=== PATIENT | male | born 1950 | race Hispanic/Latino ===

== ENCOUNTER 2019-12-09 11:07 | Day surgery (SDC) | payer MEDICARE ==
[~2019-12-09 11:07] MED LIST: SODIUM CHLORIDE 0.9% 1000 ML 1,000 ML IV SCH; ceFAZolin/Water 2 GM/20 ML 2 GM/20 ML SYRINGE IV NR
--- NOTE | 2019-12-09 12:35 | Anesthesia Consultation ---
Anesthesia Consult and Med Hx Date of service: 12/09/19 - Airway Anesthetic Teeth Evaluation: Good, Caps ROM Head & Neck: Adequate Mental/Hyoid Distance: Adequate Mallampati Class: Class II Intubation Access Assessment: Probably Good - Pre-Operative Health Status ASA Pre-Surgery Classification: ASA2 Proposed Anesthetic Plan: General - Pulmonary Hx Smoking: Yes (STOPPED 1981) Hx Sleep Apnea: No (DEONTE PRE SCREEN HIGH RISK) - Cardiovascular System Hx Hypertension: Yes (X 25 YRS) Hx Coronary Artery Disease: No (high cholesterol) - Central Nervous System Hx Psychiatric Problems: Yes (anxiety) - Endocrine Hx Renal Disease: No (h/o bladder CA, prostate nodule) - Other Systems Hx Alcohol Use: Yes (HX ABUSE- DRY SINCE 1993) Hx Substance Use: Yes (HX ABUSE- CLEAN SINCE 1993) Hx Cancer: Yes (bladder CA)
--- NOTE | 2019-12-09 12:37 | Anesthesia Day of Surgery ---
Anesthesia Day of Surgery - Day of Surgery Patient Examined: Yes Patient H&P Reviewed: Yes Patient is NPO: Yes Beta Blockers: Yes (took Labetalol in the AM)
[2019-12-09] MEDS ORDERED: HYDROmorphone 1 MG/1 ML INJ ONE (12:43)
[2019-12-09] MEDS ORDERED: propofoL 200 MG/20 ML VIAL IV ONE (12:43)
[2019-12-09] MEDS ORDERED: LIDOCAINE MPF (2%) 20 MG/1 ML VIAL 5 ML ONE (12:44)
[2019-12-09] MEDS ORDERED: FAMOTIDINE 20 MG/2 ML INJ IV NR (13:00)
[2019-12-09] MEDS ORDERED: MIDAZOLAM 2 MG/2 ML INJ IV NR (13:00)
[2019-12-09] MEDS ORDERED: WATER FOR IRRIG STERILE 2000 ML IR ONE (13:33)
[2019-12-09] MEDS ORDERED: WATER FOR IRRIG STERILE 1,500 ML BOTTLE IR ONE (13:33)
[2019-12-09] MEDS ORDERED: MANNITOL/SORBITOL SOLUTION 3,000 ML IRRIG.SOLN IR ONE ×2 (13:49)
[2019-12-09] MEDS ORDERED: ONDANSETRON 4 MG/2 ML INJ ONE (14:07)
--- NOTE | 2019-12-09 14:10 | Short Stay Summary ---
Short Stay Documentation Date of service: 12/09/19 - History H&P: obtained from office - Allergies and Medications Current Medications: Allergies No Known Allergies Allergy (Verified 12/02/19 16:03) Home Medications Medication Instructions Recorded Confirmed Last Taken Type AtorvaSTATin [Lipitor] 40 mg PO QHS 12/02/19 12/09/19 12/08/19 09:00 History Butalb/Acetamin/Caff 50-325-40 0.5 tab PO TID 12/02/19 12/09/19 12/08/19 16:00 History [Fioricet 50-325-40] Folic Acid 1 mg PO DAILY 12/02/19 12/09/19 12/08/19 09:00 History LORazepam [Ativan] 1 mg PO TID PRN 12/02/19 12/02/19 Unknown History amLODIPine [Norvasc] 10 mg PO DAILY 12/02/19 12/09/19 12/09/19 07:30 History labetaloL [Labetalol 200mg TAB] 200 mg PO BID 12/02/19 12/09/19 12/09/19 07:30 History Active Medications Famotidine (Pepcid) 20 mg IV PREOP NR Stop: 12/09/19 23:00 Last Admin: 12/09/19 13:00 Dose: 20 mg Documented by: Fentanyl (Sublimaze) 50 mcg IV Q5MIN PRN PRN Reason: Pain , Severe (7-10) Stop: 12/09/19 23:00 Sodium Chloride (Nacl 0.9% 1000 Ml) 1,000 mls @ 100 mls/hr IV DIRECT DANIKA Stop: 12/09/19 23:59 Last Admin: 12/09/19 11:55 Dose: 100 mls/hr Documented by: Cefazolin Sodium (Ancef/Sterile Water 2 Gm/20 Ml) 2 gm in 20 mls @ 80 mls/hr IV PREOP NR; Protocol Stop: 12/09/19 23:00 Midazolam HCl (Versed) 2 mg IV PREOP NR Stop: 12/09/19 23:59 Last Admin: 12/09/19 13:05 Dose: 2 mg Documented by: - Brief post op/procedure progress note Date of procedure: 12/09/19 Pre-op diagnosis: bladder tumor x 2, elevated psa ---6 Post-op diagnosis: same Procedure: custo, TURBT-3CM, PUS 60CC----BX X 12 Anesthesia: GETA Surgeon: MONTY HARMON Estimated blood loss: minimal Pathology: list (prostate cores x 12 / bladder tumor) Specimen disposition: to lab Condition: stable - Hospital course Hospital course: floricet & bactrim on chart - Disposition Condition at discharge: Stable Disposition: DC-01 TO HOME OR SELFCARE Short Stay Discharge Plan Follow up with: MORENO OLIVER MD [Primary Care Provider] - 7 Days
[2019-12-09] MEDS: fentaNYL 100 MCG/2 ML INJ IV PRN ×4 (14:23→14:53)
[2019-12-09 15:04] VITALS: BP 154/72
--- NOTE | 2019-12-09 15:10 | XRay Report ---
Fluoroscopic view the abdomen. HISTORY: Elevated PSA. FINDINGS: Single fluoroscopic image of the abdomen was unremarkable. Fluoroscopy time: 2 seconds. One fluoroscopic image was obtained. Signer Name: Noe Servin MD Signed: 12/09/2019 3:05 PM Workstation Name: [id number]
--- NOTE | 2019-12-09 15:44 | Operative Report ---
PREOPERATIVE DIAGNOSIS: Bladder tumor x 2, elevated PSA of 6. PROCEDURE: Cystoscopy, transurethral resection of multiple bladder tumors (2 aggregate of 3 cm), a transrectal ultrasound with a 60 gram gland and prostate biopsy x 12. SURGEON: Stefan Nelson MD ANESTHESIA: General. ESTIMATED BLOOD LOSS: Minimal. FLUIDS: Crystalloid. COMPLICATIONS: No complications. INDICATIONS: This patient is a 69-year-old gentleman known to our service with a history of an elevated PSA biopsy negative in the past and recurrent bladder tumors. He has been followed with surveillance cystoscopy in the office, was found to have 2 tumors in the bladder. He had gotten out to surveillance of every 6 months. Also, has had persistent elevated PSA of 6 and presents now for intervention. DESCRIPTION OF PROCEDURE: The patient was taken to the operative suite, placed in a supine position, after adequate general anesthesia, placed in a dorsal lithotomy position, prepped and draped in a sterile fashion. Pancystourethroscopy was performed with a 22-Algerian Storz cystoscope. The patient has some mild trilobar obstruction. His bladder had some diffuse trabeculation. Both ureteral orifices in normal position. Two tumors were noted on the right side of the bladder, one just posterior to the right ureteral orifice. The second one is on the right posterior lateral wall. Using a 24-Algerian resectoscope and loop with the cutting and coag on 120 and 60, transurethral resection of both tumors were performed, taken down to the bladder wall and the base of normal tissue was cauterized as well. Chips were evacuated out, will be sent for routine pathologic evaluation. Next, with the use of a transrectal probe ____ 2 dimensions were used to obtain prostate volume of 60 mL. Twelve core biopsy was performed with 4 cores at the base, mid, and apex of the prostate. On ultrasound, no hypoechoic lesions could be appreciated. The patient tolerated the procedure well. Bladder was emptied. He was taken to recovery room, will go home on Bactrim and ____ at the patient's request. JOB# [id number] [facility]
--- NOTE | 2019-12-09 16:50 | Post Anesthesia Evaluation ---
- Post Anesthesia Evaluation Patient Participated: Yes Airway Patent: Yes Stable Respiratory Function: Yes Nausea/Vomiting: No Temp > 96.8F: Yes Pain Manageable: Yes Adequeate Hydration: Yes Anesthesia Complications: No
--- NOTE | 2019-12-09 18:50 | Ultrasound Report ---
Transrectal ultrasound. HISTORY: Bladder mass. FINDINGS: Transvaginal ultrasound was utilized for prostate biopsy which was performed by Dr. Nelson. Signer Name: Noe Servin MD Signed: 12/09/2019 6:46 PM Workstation Name: [id number]
== END 2019-12-09 16:05 | disposition home or self-care (01) ==
LOC: OR 11:07
PROVIDERS: ATTEND Urology
DX: N40.0 Benign prostatic hyperplasia without lower urinary tract symptoms (principal); C67.6 Malignant neoplasm of ureteric orifice; C67.2 Malignant neoplasm of lateral wall of bladder; G43.909 Migraine, unspecified, not intractable, without status migrainosus; E78.00 Pure hypercholesterolemia, unspecified; I10 Essential (primary) hypertension; F32.9 Major depressive disorder, single episode, unspecified; F41.9 Anxiety disorder, unspecified; Z72.89 Other problems related to lifestyle; Z98.890 Other specified postprocedural states; Z79.899 Other long term (current) drug therapy; Z87.891 Personal history of nicotine dependence
CPT/HCPCS: 52235; 55700; 74018; 76872; 88305; A4217; J0690; J1170; J2250; J2405; J2704; J3010; J7030; C1758

== ENCOUNTER 2021-02-06 06:06 | Observation (INO) | payer MEDICARE ==
[2021-01-31 13:39] LABS: Hematocrit 39.1 % (35.5-45.6); Hemoglobin 13.6 gm/dl (11.8-15.2); Mean Corpuscular HGB Conc 35 % (32-34); Mean Corpuscular Volume 92 fl (84-94); Platelet Count 261 K/mm3 (140-440); Red Blood Count 4.24 M/mm3 (3.65-5.03); Red Cell Distribution Width 13.8 % (13.2-15.2)
[2021-01-31 13:54] LABS: Alanine Aminotransferase 16 units/L (7-56); Albumin 4.5 g/dL (3.9-5); Blood Urea Nitrogen 10 mg/dL (9-20); Calcium 9.8 mg/dL (8.4-10.2); Hemolysis Index 2
[2021-01-31 14:01] LABS: BUN/Creatinine Ratio 14
--- NOTE | 2021-01-31 15:52 | Anesthesia Consultation ---
Anesthesia Consult and Med Hx Date of service: 02/06/21 - Airway Anesthetic Teeth Evaluation: Good ROM Head & Neck: Adequate Mental/Hyoid Distance: Adequate Mallampati Class: Class I Intubation Access Assessment: Good - Pulmonary Exam CTA: Yes - Cardiac Exam Cardiac Exam: RRR - Pre-Operative Health Status ASA Pre-Surgery Classification: ASA3 Proposed Anesthetic Plan: General Nerve Block: TAP - Pulmonary Hx Smoking: Yes (quit >30yrs ago) Hx Respiratory Symptoms: No Hx Sleep Apnea: No (DEONTE PRE SCREEN HIGH RISK) - Cardiovascular System Hx Hypertension: Yes Hx Heart Attack/AMI: No Hx Percutaneous Transluminal Coronary Angioplasty (PTCA): No Hx Cardia Arrhythmia: No Hx Valvular Heart Disease: Yes (MVP, asymptomatic) - Central Nervous System CVA: No Hx Psychiatric Problems: Yes (anxiety, depression) - Endocrine Hx Renal Disease: No Hx Liver Disease: No Hx Insulin Dependent Diabetes: No Hx Non-Insulin Dependent Diabetes: No Hx Thyroid Disease: No - Hematic Hx Anemia: No - Other Systems Hx Alcohol Use: Yes (hx EtOH abuse; sober since 1993) Hx Substance Use: Yes (hx substance abuse; sober since 1993) Hx Cancer: Yes (prostate ca, hx bladder ca) - Additional Comments Anesthesia Medical History Comments: No hx anesthetic complications.
[~2021-02-06 06:06] MED LIST changes: +ACETAMINOPHEN 500 MG TAB PO SCH; +CELECOXIB 200 MG CAP PO NR; +GABAPENTIN 300 MG CAP PO NR; +LACTATED RINGERS 1,000 ML IV SCH; -SODIUM CHLORIDE 0.9% 1000 ML 1,000 ML IV SCH; +ceFAZolin/STERILE WATER 2 GM/20 ML SYRINGE IV NR; +fentaNYL 100 MCG/2 ML INJ IV PRN
[2021-02-06] MEDS ORDERED: BACTERIOSTATIC SODIUM CHLORIDE 0.9% 30 ML VIAL INFILTRATI ONE (06:21)
[2021-02-06] MEDS ORDERED: fentaNYL 100 MCG/2 ML INJ ONE (07:10)
[2021-02-06] MEDS ORDERED: HYDROmorphone 1 MG/1 ML INJ ONE (07:10)
[2021-02-06] MEDS ORDERED: propofoL 200 MG/20 ML VIAL IV ONE (07:10)
[2021-02-06] MEDS ORDERED: ePHEDrine SULFATE 50 MG/1 ML INJ ONE ×3 (07:11→10:44)
[2021-02-06] MEDS ORDERED: HYDROmorphone 1 MG/1 ML INJ IV PRN (07:11)
[2021-02-06] MEDS ORDERED: ONDANSETRON 4 MG/2 ML INJ IV PRN ×2 (07:11→12:00)
--- NOTE | 2021-02-06 07:13 | Anesthesia Day of Surgery ---
Anesthesia Day of Surgery - Day of Surgery Patient Examined: Yes Patient H&P Reviewed: Yes Patient is NPO: Yes
[2021-02-06] MEDS: MIDAZOLAM 2 MG/2 ML INJ IV NR ×2 (07:15→12:05)
[2021-02-06] MEDS ORDERED: CALCIUM CHLORIDE 1,000 MG/10 ML SYRINGE IV ONE ×2 (07:21→09:22)
[2021-02-06] MEDS ORDERED: CITRIC ACID-SOD CITRATE 500 ML IV ONE (07:21)
[2021-02-06] MEDS ORDERED: BUPIVACAINE-EPINEPHRINE/PF 0.25%-1:200,000 (30 ML) VIAL INFILTRATI ONE ×2 (07:22→11:47)
[2021-02-06] MEDS ORDERED: THROMBIN (RECOMBINANT) 5,000 UNIT VIAL TP ONE ×2 (07:23→09:19)
[2021-02-06] MEDS ORDERED: SODIUM CHLORIDE 0.9% IRRIG SOLN 2000 ML IR ONE (09:17)
[2021-02-06] MEDS ORDERED: WATER FOR IRRIG STERILE 1,500 ML BOTTLE IR ONE (09:17)
[2021-02-06] MEDS ORDERED: CITRIC ACID-SOD CITRATE SOLN 500 ML IV SOLN IV ONE (09:18)
[2021-02-06] MEDS ORDERED: SUGAMMADEX SODIUM 200 MG/2 ML VIAL IV ONE (10:35)
[2021-02-06] MEDS ORDERED: SUCCINYLCHOLINE CHLORIDE 200 MG/10 ML INJ MDV ONE (11:00)
[2021-02-06] MEDS ORDERED: ROCURONIUM 50 MG/5 ML INJ IV ONE (11:00)
[2021-02-06] MEDS ORDERED: dexAMETHasone 20 MG/5 ML VIAL ONE (11:00)
[2021-02-06] MEDS ORDERED: LIDOCAINE MPF (2%) 20 MG/1 ML VIAL 5 ML ONE (11:00)
[2021-02-06] MEDS ORDERED: ONDANSETRON 4 MG/2 ML INJ ONE (11:00)
--- NOTE | 2021-02-06 11:07 | Short Stay Summary ---
Short Stay Documentation Date of service: 02/06/21 - History H&P: obtained from office - Allergies and Medications Current Medications: Allergies No Known Allergies Allergy (Verified 12/02/19 16:03) Home Medications Medication Instructions Recorded Confirmed Last Taken Type AtorvaSTATin [Lipitor] 40 mg PO QHS 12/02/19 01/27/21 02/06/21 05:30 History LORazepam [Ativan] 1 mg PO TID PRN 12/02/19 01/27/21 02/06/21 05:30 History amLODIPine [Norvasc] 10 mg PO DAILY 12/02/19 01/27/21 02/06/21 05:30 History labetaloL [Labetalol 200mg TAB] 300 mg PO BID 12/02/19 01/27/21 02/06/21 05:30 History Esgic Plus 1 tab PO PRN PRN 01/27/21 01/27/21 02/05/21 History Active Medications Acetaminophen (Acetaminophen 500 Mg Tab) 1,000 mg PO PREOP DANIKA Last Admin: 02/06/21 06:40 Dose: 1,000 mg Documented by: Celecoxib (Celecoxib 200 Mg Cap) 200 mg PO PREOP NR Stop: 02/07/21 23:59 Last Admin: 02/06/21 06:40 Dose: 200 mg Documented by: Fentanyl (Fentanyl 100 Mcg/2 Ml Inj) 100 mcg IV ONCE PRN PRN Reason: sedation for nerve block Stop: 02/07/21 23:59 Gabapentin (Gabapentin 300 Mg Cap) 300 mg PO PREOP NR Stop: 02/07/21 23:59 Last Admin: 02/06/21 06:40 Dose: 300 mg Documented by: Hydromorphone HCl (Hydromorphone 1 Mg/1 Ml Inj) 0.25 mg IV Q10MIN PRN PRN Reason: Pain, Moderate (4-6) Stop: 02/06/21 18:00 Hydromorphone HCl (Hydromorphone 1 Mg/1 Ml Inj) 0.5 mg IV Q10MIN PRN PRN Reason: Pain , Severe (7-10) Stop: 02/06/21 20:00 Lactated Ringer's (Lactated Ringers) 1,000 mls @ 100 mls/hr IV DIRECT DANIKA Stop: 02/06/21 23:59 Last Admin: 02/06/21 06:45 Dose: 100 mls/hr Documented by: Cefazolin Sodium (Ancef/Sterile Water 2 Gm/20 Ml) 2 gm in 20 mls @ 80 mls/hr IV PREOP NR Stop: 02/07/21 23:59 Midazolam HCl (Midazolam 2 Mg/2 Ml Inj) 2 mg IV PREOP NR Stop: 02/07/21 23:59 Last Admin: 02/06/21 07:15 Dose: 2 mg Documented by: Ondansetron HCl (Ondansetron 4 Mg/2 Ml Inj) 4 mg IV ONCE PRN PRN Reason: Nausea And Vomiting Stop: 02/06/21 18:00 - Brief post op/procedure progress note Date of procedure: 02/06/21 Pre-op diagnosis: prostate cancer Post-op diagnosis: same Procedure: robotic prostatectomy, bladder neck suspension Anesthesia: GETA Surgeon: MONTY HARMON Estimated blood loss: other (300cc) Pathology: none (prostate) Specimen disposition: to lab Condition: stable - Hospital course Hospital course: dilaudid, bactrim, post opinfo on chart PT WITH NO ISSUES IVET REMOVED HOME WITH STEVEN - Disposition Condition at discharge: Stable Short Stay Discharge Plan Follow up with: MORENO OLIVER MD [Primary Care Provider] - 7 Days
--- NOTE | 2021-02-06 11:41 | Consultation ---
History of Present Illness - Reason for Consult Consult date: 02/06/21 Medical management Requesting physician: MONTY NELSON - History of Present Illness 70 YO Male with CAP, HTN. consult placed for medical management. Consult placed by Dr. Nelson. Patient seen and evaluated in his room. No reported nursing events. Patient denies pain. Patient denies fever, chills, chest pain, palpitation, reductive cough, skin rash, recent ill contacts, or known exposure to COVID-19. No reported nursing events. Past History Past Medical History: cancer, hypertension Past Surgical History: Other ( prostatectomy) Social history: . denies: smoking, alcohol abuse Family history: no significant family history, other (Reviewed) Medications and Allergies Allergies Allergy/AdvReac Type Severity Reaction Status Date / Time No Known Allergies Allergy Verified 12/02/19 16:03 Home Medications Medication Instructions Recorded Confirmed Last Taken Type AtorvaSTATin [Lipitor] 40 mg PO QHS 12/02/19 01/27/21 02/06/21 05:30 History LORazepam [Ativan] 1 mg PO TID PRN 12/02/19 01/27/21 02/06/21 05:30 History amLODIPine [Norvasc] 10 mg PO DAILY 12/02/19 01/27/21 02/06/21 05:30 History labetaloL [Labetalol 200mg TAB] 300 mg PO BID 12/02/19 01/27/21 02/06/21 05:30 History Esgic Plus 1 tab PO PRN PRN 01/27/21 01/27/21 02/05/21 History Active Meds: Active Medications Acetaminophen (Acetaminophen 500 Mg Tab) 1,000 mg PO PREOP DANIKA Last Admin: 02/06/21 06:40 Dose: 1,000 mg Documented by: Amlodipine Besylate (Amlodipine 10 Mg Tab) 10 mg PO DAILY [facility] Atorvastatin Calcium (Atorvastatin 40 Mg Tab) 40 mg PO QHS DANIKA Celecoxib (Celecoxib 200 Mg Cap) 200 mg PO PREOP NR Stop: 02/07/21 23:59 Last Admin: 02/06/21 06:40 Dose: 200 mg Documented by: Fentanyl (Fentanyl 100 Mcg/2 Ml Inj) 100 mcg IV ONCE PRN PRN Reason: sedation for nerve block Stop: 02/07/21 23:59 Gabapentin (Gabapentin 300 Mg Cap) 300 mg PO PREOP NR Stop: 02/07/21 23:59 Last Admin: 02/06/21 06:40 Dose: 300 mg Documented by: Hydromorphone HCl (Hydromorphone 1 Mg/1 Ml Inj) 0.25 mg IV Q10MIN PRN PRN Reason: Pain, Moderate (4-6) Stop: 02/06/21 18:00 Hydromorphone HCl (Hydromorphone 1 Mg/1 Ml Inj) 0.5 mg IV Q10MIN PRN PRN Reason: Pain , Severe (7-10) Stop: 02/06/21 20:00 Hydromorphone HCl (Hydromorphone 2 Mg/1 Ml Inj) 2 mg IV Q3H PRN PRN Reason: Pain , Severe (7-10) Hydromorphone HCl (Hydromorphone 2 Mg Tab) 2 mg PO Q4H PRN PRN Reason: Pain , Severe (7-10) Lactated Ringer's (Lactated Ringers) 1,000 mls @ 100 mls/hr IV DIRECT DANIKA Stop: 02/06/21 23:59 Last Admin: 02/06/21 06:45 Dose: 100 mls/hr Documented by: Cefazolin Sodium (Ancef/Sterile Water 2 Gm/20 Ml) 2 gm in 20 mls @ 80 mls/hr IV PREOP NR Stop: 02/07/21 23:59 Sodium Chloride (Nacl 0.9% 1000 Ml) 1,000 mls @ 100 mls/hr IV DIRECT DANIKA Cefazolin Sodium (Ancef/Ns 1 Gm/50 Ml) 1 gm in 50 mls @ 100 mls/hr IV Q8H DANIKA; Protocol Stop: 02/07/21 01:29 Labetalol HCl (Labetalol 200 Mg Tab) 300 mg PO BID DANIKA Midazolam HCl (Midazolam 2 Mg/2 Ml Inj) 2 mg IV PREOP NR Stop: 02/07/21 23:59 Last Admin: 02/06/21 07:15 Dose: 2 mg Documented by: Naloxone HCl (Naloxone 0.4 Mg/1 Ml Inj) 0.1 mg IV Q2MIN PRN PRN Reason: Res Rate </= 8 or 02 SAT < 92% Ondansetron HCl (Ondansetron 4 Mg/2 Ml Inj) 4 mg IV ONCE PRN PRN Reason: Nausea And Vomiting Stop: 02/06/21 18:00 Ondansetron HCl (Ondansetron 4 Mg/2 Ml Inj) 4 mg IV Q8H PRN PRN Reason: Nausea And Vomiting Zolpidem Tartrate (Zolpidem 5 Mg Tab) 5 mg PO QHS PRN PRN Reason: Sleep Review of Systems Constitutional: no weight gain, no fever, no chills, no sweats Ears, nose, mouth and throat: no ear pain, no tinnitis, no nose pain, no nasal congestion, no sinus pressure Cardiovascular: no chest pain, no orthopnea, no palpitations Respiratory: no cough, no cough with sputum, no hemoptysis Gastrointestinal: no abdominal pain, no nausea, no vomiting, no diarrhea, no constipation, no change in bowel habits Genitourinary Male: no hematuria, no flank pain, no discharge, no urinary frequency, no urinary hesitancy, no nocturia Rectal: no pain, no incontinence, no bleeding Musculoskeletal: no neck stiffness, no neck pain, no arm numbness/tingling, no shooting leg pain, no leg numbness/tingling Integumentary: no rash, no pruritis, no redness, no sores Neurological: no head injury, no paralysis, no parathesias, no tingling, no syncope Psychiatric: no anxiety, no insomnia, no hypersomnia, no change in appetite, no disorientation Endocrine: no excessive thirst, no polyuria, no excessive sweating, no flushing Hematologic/Lymphatic: no easy bruising, no easy bleeding Exam - Constitutional Vitals: Temp Pulse Resp BP Pulse Ox 98.2 F 63 20 149/87 98 01/31/21 11:50 01/31/21 11:50 01/31/21 11:50 01/31/21 11:50 01/31/21 11:50 General appearance: Present: no acute distress, well-nourished - EENT Eyes: Present: PERRL ENT: hearing intact, clear oral mucosa - Neck Neck: Present: supple, normal ROM - Respiratory Respiratory effort: normal Respiratory: bilateral: CTA - Cardiovascular Heart Sounds: Present: S1 & S2. Absent: rub, click - Extremities Extremities: pulses symmetrical, No edema Peripheral Pulses: within normal limits - Abdominal General gastrointestinal: Present: soft, non-tender, non-distended, normal bowel sounds Male genitourinary: Present: normal - Integumentary Integumentary: Present: clear, warm, dry - Musculoskeletal Musculoskeletal: gait normal, strength equal bilaterally - Psychiatric Psychiatric: appropriate mood/affect, intact judgment & insight - Neurologic Neurologic: CNII-XII intact, moves all extremities Results - Labs CBC & Chem 7: 01/31/21 00:01 01/31/21 00:01 Assessment and Plan - Patient Problems (1) Hypertension Current Visit: Yes Status: Acute Qualifiers: Hypertension type: essential hypertension Qualified Code(s): I10 - Essential (primary) hypertension Plan to address problem: Continue medical management, monitor blood pressure every shift, supportive care. (2) Prostate cancer Current Visit: Yes Status: Acute Plan to address problem: Pain control, patient is status post prostatectomy, further care as per primary team.
[2021-02-06] MEDS ORDERED: dexAMETHasone 4 MG/ML VIAL ONE (11:47)
[2021-02-06] MEDS ORDERED: NALOXONE 0.4 MG/1 ML INJ IV PRN (12:00)
[2021-02-06] MEDS ORDERED: HYDROmorphone 2 MG TAB PO PRN (12:00)
[2021-02-06] MEDS ORDERED: SODIUM CHLORIDE 0.9% 1000 ML 1,000 ML IV SCH (12:00)
[2021-02-06] MEDS: HYDROmorphone 1 MG/1 ML INJ IV PRN ×6 (12:05→16:40)
--- NOTE | 2021-02-06 14:27 | Operative Report ---
DATE OF SURGERY: 02/06/2021 PREOPERATIVE DIAGNOSIS: Prostate cancer. POSTOPERATIVE DIAGNOSIS: Prostate cancer. PROCEDURES: Robotic-assisted laparoscopic prostatectomy, bladder neck suspension, stem cell implant. SURGEON: Stefan Nelson MD GENERAL INTERNIST: Rita Vaughn. ANESTHESIA: General. ESTIMATED BLOOD LOSS: Minimal. FLUIDS: Crystalloid. COMPLICATIONS: No complications. INDICATIONS FOR PROCEDURE: This patient is a 70-year-old gentleman known to my service for prostate cancer diagnosed 11/2019, Jessica 7, elected for active surveillance initially. PSA 4.6, however, recent MRI suggested an aggressive lesion. He also has a history of superficial bladder cancer. Recent cystoscopy was negative. Risks, benefits and complications were explained. The patient agreed to proceed with surgical intervention. DESCRIPTION OF PROCEDURE: The patient was taken to the operative suite, placed in a supine position. After adequate general anesthesia, he was placed in a modified dorsal lithotomy position, prepped and draped in a sterile fashion. Supraumbilical incision was made with the Bovie. Towel clips were placed. Veress needle was used for insufflation. Drop test initially was 0 mL of water. Insufflation to 15 cm of water was performed. A 15 cm cephalad to the pubic symphysis was marked, 9 cm lateral, additional 9 cm lateral, and after the 0-degree lens was placed in the supraumbilical incision, the robotic ports were also placed under direct vision, no signs of injury or metastasis could be appreciated. A 12 mm helper port on the right side as well as a 5 mm helper port was on the right side. The robotic cart was docked between the legs. The patient was placed in exaggerated dorsal lithotomy position. Second arch identified the bladder. The arch was scored exposing the seminal vesicles and vas deferens. They were dissected out as well as dissection was taken to the apex of the prostate. Vas deferens was transected. Attention was then taken to the anterior abdominal wall. Lateral to the anterior abdominal ligament was scored, bladder flap bilaterally and a bladder flap was created. Endopelvic fascia was opened bilaterally. Dorsal vein complex was identified and controlled with a 60 mm vascular stapler. Attention was then taken at the bladder neck, which was scored and opened anteriorly exposing the Hayes catheter, was deflated and pulled anteriorly for traction. Posterior bladder neck was transected. Ureteral orifices could be appreciated, were uninjured. Seminal vesicles and vas deferens were pulled anteriorly. Lateral pedicles were controlled with 60 mm vascular stapler bilaterally. Dorsal vein complex was then transected along with the anterior urethra distal to the prostate. Hayes could be appreciated. Posterior urethra was transected and the prostate was dissected free, placed in the EndoCatch bag. Copious irrigation was performed. Adequate hemostasis achieved. A bladder neck reconstruction was performed with 2-0 Vicryl in interrupted fashion at the 7 o'clock and 5 o'clock positions. Double-armed V-Loc was placed at the 6 o'clock position of the bladder neck in the corresponding aspect of the urethra. The needle was avulsed and taken out and therefore, the reconstruction was taken down and a new V-Loc stitch was placed without difficulty. To ensure good placement of the Hayes, 0.035 Glidewire was placed, 16-Malay mashpee tip catheter was advanced over the wire without difficulty. Bladder neck anastomosis was cinched down. Hayes catheter balloon had 15 mL sterile water irrigation. No clots, no leak. Bladder neck suspension was performed, placed in the V-Loc stitch in the pubic rami bilaterally. Stem cell graft was placed along the neurovascular bundle bilaterally. Platelet rich plasma, platelet poor plasma was injected around the anastomosis as well as a platelet membrane. Bronson-Heath drain was brought out through the left-sided incision and secured with a 2-0 silk in interrupted fashion. The robotic cart was undocked. Supraumbilical incision was extended to allow removal of the prostate. It was then closed with a #1 Vicryl in a [id number] fashion. The rest of the incisions were closed with a 2-0 Monocryl in an interrupted fashion. Hayes catheter was folded over. Side port of the Hayes catheter was folded over and tied with 0 silk to prevent removal. The patient tolerated the procedure well, was extubated and taken to recovery room in stable condition. He will be observed overnight and go home on Dilaudid and Bactrim. Rita Vaughn was present throughout the procedure at the bedside to assist. TID: [id number] RECEIPT: [id number] C/SONIA/RUBIOB
--- NOTE | 2021-02-06 16:16 | Post Anesthesia Evaluation ---
- Post Anesthesia Evaluation Patient Participated: Yes Airway Patent: Yes Stable Respiratory Function: Yes Nausea/Vomiting: No Temp > 96.8F: Yes Pain Manageable: Yes Adequeate Hydration: Yes Anesthesia Complications: No Block Receding Appropriately: Yes Patient on Ventilator: No
[2021-02-06] MEDS ORDERED: amLODIPine 10 MG TAB PO SCH (18:00)
[2021-02-06] MEDS: ceFAZolin/NS 1 GM/50 ML 1 GM/50 ML BAG IV SCH (19:27)
[2021-02-06] MEDS ORDERED: LORazepam 1 MG TAB PO PRN (19:40)
[2021-02-06] MEDS: HYDROmorphone 2 MG/1 ML INJ IV PRN (20:47)
[2021-02-06] MEDS ORDERED: ZOLPIDEM 5 MG TAB PO PRN (22:00)
[2021-02-07] MEDS: ceFAZolin/NS 1 GM/50 ML 1 GM/50 ML BAG IV SCH (00:35)
[2021-02-07] MEDS: HYDROmorphone 2 MG/1 ML INJ IV PRN ×2 (00:43→05:30)
[2021-02-07 05:24] LABS: Basophils % (Auto) 0.1 % (0.0-1.8); Hematocrit 36.3 % (35.5-45.6); Hemoglobin 12.5 gm/dl (11.8-15.2); Lymphocytes # (Auto) 0.7 K/mm3 (1.2-5.4); Lymphocytes % (Auto) 5.7 % (13.4-35.0); Mean Corpuscular HGB Conc 35 % (32-34); Mean Corpuscular Volume 92 fl (84-94); Monocytes % (Auto) 8.2 % (0.0-7.3); Platelet Count 243 K/mm3 (140-440); Red Blood Count 3.96 M/mm3 (3.65-5.03); Red Cell Distribution Width 13.4 % (13.2-15.2)
[2021-02-07 05:37] LABS: Blood Urea Nitrogen 12 mg/dL (9-20); Calcium 8.3 mg/dL (8.4-10.2); Hemolysis Index 4
[2021-02-07 05:38] LABS: BUN/Creatinine Ratio 17
--- NOTE | 2021-02-07 08:50 | Progress Note ---
Assessment and Plan Assessment and plan: (1) Hypertension Current Visit: Yes Status: Acute Qualifiers: Hypertension type: essential hypertension Qualified Code(s): I10 - Essential (primary) hypertension Plan to address problem: Continue medical management, monitor blood pressure every shift, supportive care. (2) Prostate cancer Current Visit: Yes Status: Acute Plan to address problem: Pain control, patient is status post prostatectomy, further care as per primary team. 02/07/2021; blood pressures controlled. Disposition is per primary team. History Interval history: Patient was seen and evaluated this morning Patient was complaining and getting better after he gave pain medicine. Hospitalist Physical - Physical exam Narrative exam: Not in cardiopulmonary distress. The patient appeared well nourished and normally developed. Vital signs as documented. Head exam is unremarkable. No scleral icterus . Neck is without jugular venous distension, thyromegaly, or carotid bruits. Lungs are clear to auscultation. Cardiac exam reveals regular rate and Rhythm. Abdominal exam reveals normal bowel sounds, nontender, no organomegaly. Extremities are nonedematous and both femoral and pedal pulses are normal. GROUND OPERATIONS SUPERVISOR: Alert and oriented 3. No focal weakness. - Constitutional Vitals: Temp Pulse Resp BP Pulse Ox 98.2 F 84 18 135/89 95 02/07/21 04:19 02/07/21 04:19 02/07/21 04:19 02/07/21 04:19 02/07/21 04:19 General appearance: Present: no acute distress, well-nourished Results - Labs CBC & Chem 7: 02/07/21 04:25 02/07/21 04:25 Labs: Laboratory Last Values WBC 11.7 K/mm3 (4.5-11.0) H 02/07/21 04:25 RBC 3.96 M/mm3 (3.65-5.03) 02/07/21 04:25 Hgb 12.5 gm/dl (11.8-15.2) 02/07/21 04:25 Hct 36.3 % (35.5-45.6) 02/07/21 04:25 MCV 92 fl (84-94) 02/07/21 04:25 MCH 32 pg (28-32) 02/07/21 04:25 MCHC 35 % (32-34) H 02/07/21 04:25 RDW 13.4 % (13.2-15.2) 02/07/21 04:25 Plt Count 243 K/mm3 (140-440) 02/07/21 04:25 Lymph % (Auto) 5.7 % (13.4-35.0) L 02/07/21 04:25 [place] % (Auto) 8.2 % (0.0-7.3) H 02/07/21 04:25 Eos % (Auto) 0.0 % (0.0-4.3) 02/07/21 04:25 Baso % (Auto) 0.1 % (0.0-1.8) 02/07/21 04:25 Lymph # (Auto) 0.7 K/mm3 (1.2-5.4) L 02/07/21 04:25 [place] # (Auto) 1.0 K/mm3 (0.0-0.8) H 02/07/21 04:25 Eos # (Auto) 0.0 K/mm3 (0.0-0.4) 02/07/21 04:25 Baso # (Auto) 0.0 K/mm3 (0.0-0.1) 02/07/21 04:25 Seg Neutrophils % 86.0 % (40.0-70.0) H 02/07/21 04:25 Seg Neutrophils # 10.0 K/mm3 (1.8-7.7) H 02/07/21 04:25 Sodium 135 mmol/L (137-145) L 02/07/21 04:25 Potassium 3.9 mmol/L (3.6-5.0) 02/07/21 04:25 Chloride 100.6 mmol/L (98-107) 02/07/21 04:25 Carbon Dioxide 23 mmol/L (22-30) 02/07/21 04:25 Anion Gap 15 mmol/L 02/07/21 04:25 BUN 12 mg/dL (9-20) 02/07/21 04:25 Creatinine 0.7 mg/dL (0.8-1.3) L 02/07/21 04:25 Estimated GFR > 60 ml/min 02/07/21 04:25 BUN/Creatinine Ratio 17 % 02/07/21 04:25 Glucose 141 mg/dL (75-100) H 02/07/21 04:25 Calcium 8.3 mg/dL (8.4-10.2) L 02/07/21 04:25 Total Bilirubin 0.20 mg/dL (0.1-1.2) 01/31/21 00:01 AST 17 units/L (5-40) 01/31/21 00:01 ALT 16 units/L (7-56) 01/31/21 00:01 Alkaline Phosphatase 107 units/L (35-129) 01/31/21 00:01 Total Protein 6.8 g/dL (6.3-8.2) 01/31/21 00:01 Albumin 4.5 g/dL (3.9-5) 01/31/21 00:01 Albumin/Globulin Ratio 2.0 % 01/31/21 00:01 Coronavirus (PCR) Negative (Negative) 01/31/21 11:40 Blood Type A POSITIVE 02/06/21 06:45 Antibody Screen Negative 02/06/21 06:45 Hayes/IV: Voiding Method Indwelling Catheter Active Medications - Current Medications Current Medications: Generic Name Dose Route Start Last Admin Trade Name Freq PRN Reason Stop Dose Admin Acetaminophen 1,000 mg 02/06/21 06:00 02/06/21 06:40 Acetaminophen 500 Mg Tab PO 1,000 mg PREOP DANIKA Administration Amlodipine Besylate 10 mg 02/07/21 10:00 Amlodipine 10 Mg Tab PO DAILY DANIKA Atorvastatin Calcium 40 mg 02/06/21 22:00 02/06/21 22:02 Atorvastatin 40 Mg Tab PO 40 mg QHS DANIKA Administration Celecoxib 200 mg 02/06/21 06:00 02/06/21 06:40 Celecoxib 200 Mg Cap PO 02/07/21 23:59 200 mg PREOP NR Administration Fentanyl 100 mcg 02/06/21 06:00 Fentanyl 100 Mcg/2 Ml Inj IV 02/07/21 23:59 ONCE PRN sedation for nerve block Gabapentin 300 mg 02/06/21 06:00 02/06/21 06:40 Gabapentin 300 Mg Cap PO 02/07/21 23:59 300 mg PREOP NR Administration Hydromorphone HCl 2 mg 02/06/21 12:00 02/07/21 05:30 Hydromorphone 2 Mg/1 Ml Inj IV 2 mg Q3H PRN Administration Pain , Severe (7-10) Hydromorphone HCl 2 mg 02/06/21 12:00 Hydromorphone 2 Mg Tab PO Q4H PRN Pain , Severe (7-10) Cefazolin Sodium 2 gm in 20 mls @ 80 mls/hr 02/06/21 06:00 Ancef/Sterile Water 2 Gm/20 Ml IV 02/07/21 23:59 PREOP NR Sodium Chloride 1,000 mls @ 100 mls/hr 02/06/21 12:00 02/07/21 00:38 Nacl 0.9% 1000 Ml IV 100 mls/hr DIRECT DANIKA Administration Labetalol HCl 300 mg 02/06/21 18:00 02/06/21 22:01 Labetalol 100 Mg Tab PO 300 mg BID DANIKA Administration Lorazepam 1 mg 02/06/21 19:40 02/06/21 22:02 Lorazepam 1 Mg Tab PO 1 mg Q8H PRN Administration Agitation Midazolam HCl 2 mg 02/06/21 06:00 02/06/21 12:05 Midazolam 2 Mg/2 Ml Inj IV 02/07/21 23:59 2 mg PREOP NR Administration Naloxone HCl 0.1 mg 02/06/21 12:00 Naloxone 0.4 Mg/1 Ml Inj IV Q2MIN PRN Res Rate </= 8 or 02 SAT < 92% Ondansetron HCl 4 mg 02/06/21 12:00 Ondansetron 4 Mg/2 Ml Inj IV Q8H PRN Nausea And Vomiting Zolpidem Tartrate 5 mg 02/06/21 22:00 02/07/21 00:35 Zolpidem 5 Mg Tab PO 5 mg QHS PRN Administration Sleep
[2021-02-07 08:52] VITALS: BP 150/81
[2021-02-07] MEDS ORDERED: amLODIPine 10 MG TAB PO SCH (10:00)
== END 2021-02-07 13:00 | disposition home or self-care (01) ==
LOC: OR 06:06 → 3A 11:07 → 3B-SURG 19:58
PROVIDERS: ADMIT Urology; ATTEND Urology
DX: C61 Malignant neoplasm of prostate (principal); Z20.822 Contact with and (suspected) exposure to COVID-19; I10 Essential (primary) hypertension; N39.46 Mixed incontinence; Z85.51 Personal history of malignant neoplasm of bladder
CPT/HCPCS: 36415; 55866; 80048; 80053; 85025; 85027; 86850; 86900; 86901; 88309; 88344; 96365; 96366; 96375; 96376; A4217; A9270; C1769; G0378; J0330; J0690; J1100; J1170; J2250; J2405; J2704; J3010; J7030; J7120; Q4140; U0003

== ENCOUNTER 2021-10-16 08:18 | Day surgery (SDC) | payer MEDICARE ==
[~2021-10-16 08:18] MED LIST changes: -ACETAMINOPHEN 500 MG TAB PO SCH; -CELECOXIB 200 MG CAP PO NR; -GABAPENTIN 300 MG CAP PO NR; -ceFAZolin/STERILE WATER 2 GM/20 ML SYRINGE IV NR; -ceFAZolin/Water 2 GM/20 ML 2 GM/20 ML SYRINGE IV NR; -fentaNYL 100 MCG/2 ML INJ IV PRN
[2021-10-16] MEDS ORDERED: HYDROcodone/ACETAMINOPHEN 5-325 MG TAB PO PRN ×2 (09:00→09:39)
--- NOTE | 2021-10-16 09:38 | Anesthesia Consultation ---
Anesthesia Consult and Med Hx Date of service: 10/16/21 - Airway Anesthetic Teeth Evaluation: Good ROM Head & Neck: Adequate Mental/Hyoid Distance: Adequate Mallampati Class: Class I Intubation Access Assessment: Good (previous easy intubation) - Pre-Operative Health Status ASA Pre-Surgery Classification: ASA3 Proposed Anesthetic Plan: General - Pulmonary Hx Smoking: Yes (former smoker quit 40yrs) Hx Respiratory Symptoms: No (COVID 08/2020; symptoms resolved) Hx Sleep Apnea: No (DOENTE PRE SCREEN HIGH RISK) - Cardiovascular System Hx Hypertension: Yes (took amlodipine this morning) Hx Heart Attack/AMI: No Hx Percutaneous Transluminal Coronary Angioplasty (PTCA): No Hx Cardia Arrhythmia: No Hx Valvular Heart Disease: Yes (MVP) - Central Nervous System CVA: No Hx Psychiatric Problems: Yes (anxiety, depression) - Endocrine Hx Renal Disease: No Hx Liver Disease: No Hx Insulin Dependent Diabetes: No Hx Non-Insulin Dependent Diabetes: No Hx Thyroid Disease: No - Other Systems Hx Alcohol Use: Yes (hx EtOH abuse; sober since 1993) Hx Substance Use: Yes (hx substance abuse; sober since 1993) Hx Cancer: Yes (bladder ca, prostate ca) - Additional Comments Anesthesia Medical History Comments: No hx anesthetic complications. Take ativan 1mg at least TID, did not take this morning's dose. Will give versed preop.
[2021-10-16] MEDS ORDERED: fentaNYL 100 MCG/2 ML INJ IV PRN (09:39)
--- NOTE | 2021-10-16 09:39 | Anesthesia Day of Surgery ---
Anesthesia Day of Surgery - Day of Surgery Patient Examined: Yes Patient H&P Reviewed: Yes Patient is NPO: Yes
[2021-10-16] MEDS ORDERED: MIDAZOLAM 2 MG/2 ML INJ IV NR (10:00)
[2021-10-16] MEDS ORDERED: LIDOCAINE MPF (2%) 20 MG/1 ML VIAL 5 ML ONE (10:52)
[2021-10-16] MEDS ORDERED: propofoL 200 MG/20 ML VIAL IV ONE (10:52)
[2021-10-16] MEDS ORDERED: fentaNYL 100 MCG/2 ML INJ ONE (10:52)
[2021-10-16] MEDS ORDERED: ceFAZolin/Water 2 GM/20 ML 2 GM/20 ML SYRINGE IV ONE (11:02)
[2021-10-16] MEDS ORDERED: WATER FOR IRRIG STERILE 2000 ML IR ONE (12:00)
[2021-10-16] MEDS ORDERED: ePHEDrine SULFATE 50 MG/1 ML INJ ONE (12:07)
--- NOTE | 2021-10-16 12:10 | Short Stay Summary ---
Short Stay Documentation Date of service: 10/16/21 - History H&P: obtained from office - Allergies and Medications Current Medications: Allergies No Known Allergies Allergy (Verified 12/02/19 16:03) Home Medications Medication Instructions Recorded Confirmed Last Taken Type AtorvaSTATin [Lipitor] 40 mg PO QHS 12/02/19 10/16/21 10/15/21 History LORazepam [Ativan] 1 mg PO TID 12/02/19 10/16/21 10/16/21 History amLODIPine [Norvasc] 10 mg PO DAILY 12/02/19 10/16/21 10/16/21 History labetaloL [Labetalol 200mg TAB] 300 mg PO BID 12/02/19 10/16/21 10/16/21 History Butalbital/Acetaminophen/Caffeine 1 tab PO TID 10/09/21 10/16/21 10/16/21 History Active Medications Fentanyl (Fentanyl 100 Mcg/2 Ml Inj) 50 mcg IV Q5MIN PRN PRN Reason: Pain , Severe (7-10) Stop: 10/16/21 20:00 Lactated Ringer's (Lactated Ringers) 1,000 mls @ 100 mls/hr IV DIRECT DANIKA Stop: 10/16/21 23:59 Last Admin: 10/16/21 09:45 Dose: 100 mls/hr Midazolam HCl (Midazolam 2 Mg/2 Ml Inj) 2 mg IV PREOP NR Stop: 10/16/21 23:59 Last Admin: 10/16/21 10:59 Dose: 2 mg - Brief post op/procedure progress note Date of procedure: 10/16/21 Pre-op diagnosis: bladder tumor Procedure: cysto, dilation, TURBTs, cystogram Anesthesia: GETA Surgeon: MONTY HARMON Estimated blood loss: minimal Pathology: list (bladder tumors) Specimen disposition: to lab Condition: stable - Hospital course Hospital course: bactrim & norco on chart - Disposition Condition at discharge: Stable Disposition: 01 HOME / SELF CARE / HOMELESS Short Stay Discharge Plan Follow up with: PRIMARY CARE, [Primary Care Provider] - 7 Days
[2021-10-16] MEDS ORDERED: dexAMETHasone 20 MG/5 ML VIAL ONE (12:16)
[2021-10-16] MEDS ORDERED: ONDANSETRON 4 MG/2 ML INJ ONE (12:16)
--- NOTE | 2021-10-16 12:38 | Operative Report ---
DATE OF SURGERY: 10/16/2021 PREOPERATIVE DIAGNOSIS: Recurrent bladder tumor. POSTOPERATIVE DIAGNOSES: Recurrent bladder tumor, multiple bladder tumors, ureteral stricture. PROCEDURE PERFORMED: Cystoscopy, urethral dilatation, left retrograde pyelogram, transurethral resection of bladder tumor, biopsy of bladder lesion, transurethral resection of bladder tumors, biopsy of bladder lesion, aggregate less than 2 cm. SURGEON: Stefan Nelson M.D. ANESTHESIA: General. ESTIMATED BLOOD LOSS: Minimal. FLUIDS: Crystalloid. COMPLICATIONS: No complications. INDICATIONS: This patient is a 71-year-old gentleman known to our service with a long history of superficial bladder tumors. Also, recently diagnosed with prostate cancer and underwent robotic prostatectomy in 2020. He had an episode of hematuria. Previous office biopsy revealed some atypia. Recent episode of hematuria and CT suggested a bladder mass. He presents now for surgical intervention. DESCRIPTION OF PROCEDURE: The patient was taken to the operative suite, placed in a supine position. After adequate general anesthesia, placed in the dorsal lithotomy position, prepped and draped in a sterile fashion. Pancystourethroscopy was performed, had a bulbar stricture. A 0.035 Glidewire was placed and Chakraborty sound to 20-B[place]udian was used to dilate it. I was able to advance into the bladder. No signs of tumor. Normal ureter and ureteral orifice. Left retrograde pyelogram was obtained with an 8-[place] catheter and 8 mL of contrast. Right side had multiple areas of erythema, had a bladder neck tumor. Using 24-[place]ian resectoscope, tumor was resected. There was another lesion in the midline that was biopsied and cauterized as well as some satellite lesions as well. An 18-[place] catheter was left. The bladder tumor was evacuated with the Emma evacuator. Adequate hemostasis was achieved. An 18-[place] Hayes catheter was obtained. Cystogram also was obtained. No signs of extravasation could be appreciated. Rectal exam was benign. He was extubated and taken to recovery room. He will go home on Bactrim and [place]. TID: [id number] RECEIPT: [id number] GUICHO/RON
[2021-10-16 14:57] VITALS: BP 156/79
--- NOTE | 2021-10-16 16:45 | Fluoroscopy Report ---
FL CYSTOGRAM STATIC-OR INDICATION / CLINICAL INFORMATION: PROSTATE AND BLADDER CANCER. LT RPG, CYSTOGRAM, BLADDER BX, AND TU RBT OMNIPAQUE 300 40ML USED. FL TIME: 8 SECS COMPARISON: None available. FINDINGS: Urinary bladder was filled with contrast in a retrograde fashion. No definite filling defec ts. Fluoroscopy Time: 8 seconds. Fluoroscopy Images: 1. Signer Name: Nilda Jacobson MD Signed: 10/16/2021 4:41 PM Workstation Name: [id number]
--- NOTE | 2021-10-16 16:46 | Fluoroscopy Report ---
INTRAOPERATIVE FLUOROSCOPY: RETROGRADE UROGRAPHY INDICATION / CLINICAL INFORMATION: PROSTATE AND BLADDER CANCER. LT RPG, CYSTOGRAM, BLADDER BX, AND TU RBT OMNIPAQUE 300 40ML USED. FL TIME: 8 SECS TECHNIQUE: Intraoperative spot images were obtained during the procedure. FINDINGS: Retrograde injection of the left ureter demonstrates no abnormality of the left ureter or collecting system. No retention of contrast. Fluoroscopy Time: 8 seconds. Fluoroscopy Images: 4. Signer Name: Nilda Jacobson MD Signed: 10/16/2021 4:42 PM Workstation Name: [id number]
== END 2021-10-16 13:50 | disposition home or self-care (01) ==
LOC: OR 08:18
PROVIDERS: ATTEND Urology
DX: C67.5 Malignant neoplasm of bladder neck (principal); N35.919 Unspecified urethral stricture, male, unspecified site; I10 Essential (primary) hypertension; F32.9 Major depressive disorder, single episode, unspecified; F41.9 Anxiety disorder, unspecified; Z79.899 Other long term (current) drug therapy; Z87.891 Personal history of nicotine dependence; E78.00 Pure hypercholesterolemia, unspecified; Z85.46 Personal history of malignant neoplasm of prostate; Z98.890 Other specified postprocedural states; Z72.89 Other problems related to lifestyle
CPT/HCPCS: 52214; 52234; 74420; 74430; 88305; 88307; C1758; C1769; J0690; J1100; J2250; J2405; J2704; J3010; J3490; J7120; Q9967

== ENCOUNTER 2022-03-21 07:58 | Day surgery (SDC) | payer MEDICARE ==
[2022-03-20 13:03] LABS: Hematocrit 38.3 % (35.5-45.6); Hemoglobin 13.1 gm/dl (11.8-15.2); Mean Corpuscular HGB Conc 34 % (32-34); Mean Corpuscular Volume 88 fl (84-94); Platelet Count 296 K/mm3 (140-440); Red Blood Count 4.35 M/mm3 (3.65-5.03); Red Cell Distribution Width 15.8 % (13.2-15.2)
[2022-03-20 13:23] LABS: Alanine Aminotransferase 13 units/L (7-56); Albumin 4.5 g/dL (3.9-5); BUN/Creatinine Ratio 20; Blood Urea Nitrogen 16 mg/dL (9-20); Calcium 9.7 mg/dL (8.4-10.2); Hemolysis Index 3
[2022-03-21] MEDS ORDERED: ceFAZolin/STERILE WATER 2 GM/20 ML SYRINGE IV NR (08:00)
[2022-03-21] MEDS ORDERED: BACTERIOSTATIC SODIUM CHLORIDE 0.9% 30 ML VIAL INFILTRATI ONE (08:14)
[2022-03-21] MEDS ORDERED: LACTATED RINGERS 1,000 ML IV SCH (08:15)
[2022-03-21] MEDS ORDERED: ceFAZolin/Water 2 GM/20 ML 2 GM/20 ML SYRINGE IV NR (09:00)
[2022-03-21] MEDS ORDERED: MIDAZOLAM 2 MG/2 ML INJ ONE (09:04)
[2022-03-21] MEDS ORDERED: HYDROmorphone 0.5 MG/0.5 ML INJ IV PRN ×2 (09:05)
[2022-03-21] MEDS ORDERED: ONDANSETRON 4 MG/2 ML INJ IV PRN (09:05)
--- NOTE | 2022-03-21 09:06 | Anesthesia Day of Surgery ---
Anesthesia Day of Surgery - Day of Surgery Patient Examined: Yes Patient H&P Reviewed: Yes Patient is NPO: Yes
--- NOTE | 2022-03-21 09:07 | Anesthesia Consultation ---
Anesthesia Consult and Med Hx Date of service: 03/21/22 - Airway Anesthetic Teeth Evaluation: Good ROM Head & Neck: Adequate Mental/Hyoid Distance: Adequate Mallampati Class: Class I Intubation Access Assessment: Good - Pre-Operative Health Status ASA Pre-Surgery Classification: ASA3 Proposed Anesthetic Plan: General - Pulmonary Hx Smoking: Yes (STOPPED 1981) Hx Respiratory Symptoms: No (COVID 08/2020; symptoms resolved) Hx Sleep Apnea: No (DEONTE PRE SCREEN HIGH RISK) - Cardiovascular System Hx Hypertension: Yes (X 27 YRS) Hx Cardia Arrhythmia: No - Endocrine Hx Insulin Dependent Diabetes: No Hx Non-Insulin Dependent Diabetes: No Hx Thyroid Disease: No - Hematic Hx Anemia: No - Other Systems Hx Alcohol Use: Yes (hx EtOH abuse; sober since 1993) Hx Substance Use: Yes (hx substance abuse; sober since 1993) Hx Cancer: Yes (bladder ca, prostate ca) Hx Obesity: No - Additional Comments Anesthesia Medical History Comments: Last here [id number]
[2022-03-21] MEDS ORDERED: MIDAZOLAM 2 MG/2 ML INJ IV NR (10:00)
[2022-03-21] MEDS ORDERED: LIDOCAINE MPF (2%) 20 MG/1 ML VIAL 5 ML ONE (10:13)
[2022-03-21] MEDS ORDERED: propofoL 200 MG/20 ML VIAL IV ONE (10:13)
[2022-03-21] MEDS ORDERED: HYDROmorphone 0.5 MG/0.5 ML INJ ONE ×2 (10:13→10:53)
[2022-03-21] MEDS ORDERED: WATER FOR IRRIG STERILE 2000 ML IR ONE (10:50)
[2022-03-21] MEDS ORDERED: IOHEXOL 300 MG/ML 50ML IV ONE (10:50)
--- NOTE | 2022-03-21 11:29 | Short Stay Summary ---
Short Stay Documentation Date of service: 03/21/22 - History H&P: obtained from office - Allergies and Medications Current Medications: Allergies No Known Allergies Allergy (Verified 12/02/19 16:03) Home Medications Medication Instructions Recorded Confirmed Last Taken Type AtorvaSTATin [Lipitor] 40 mg PO QHS 12/02/19 03/21/22 03/20/22 History LORazepam [Ativan] 1 mg PO TID 12/02/19 03/19/22 03/21/22 06:30 History amLODIPine [Norvasc] 10 mg PO DAILY 12/02/19 03/19/22 03/21/22 06:30 History labetaloL [Labetalol 200mg TAB] 300 mg PO BID 12/02/19 03/19/22 03/21/22 06:30 History Butalbital/Acetaminophen/Caffeine 1 tab PO PRN PRN 10/09/21 03/21/22 03/21/22 08:00 History Active Medications Hydromorphone HCl (Hydromorphone 0.5 Mg/0.5 Ml Inj) 0.25 mg IV Q10MIN PRN PRN Reason: Pain, Moderate (4-6) Stop: 03/21/22 23:00 Hydromorphone HCl (Hydromorphone 0.5 Mg/0.5 Ml Inj) 0.5 mg IV Q10MIN PRN PRN Reason: Pain , Severe (7-10) Stop: 03/21/22 20:00 Cefazolin Sodium (Ancef/Sterile Water 2 Gm/20 Ml) 2 gm in 20 mls @ 80 mls/hr IV PREOP NR; Protocol Stop: 03/21/22 23:59 Lactated Ringer's (Lactated Ringers) 1,000 mls @ 100 mls/hr IV DIRECT DANIKA Stop: 03/21/22 20:00 Last Admin: 03/21/22 08:50 Dose: 100 mls/hr Midazolam HCl (Midazolam 2 Mg/2 Ml Inj) 2 mg IV PREOP NR Stop: 03/21/22 23:59 Last Admin: 03/21/22 09:05 Dose: 2 mg Ondansetron HCl (Ondansetron 4 Mg/2 Ml Inj) 4 mg IV ONCE PRN PRN Reason: Nausea And Vomiting Stop: 03/21/22 13:00 - Brief post op/procedure progress note Date of procedure: 03/21/22 Pre-op diagnosis: bladder tumor Post-op diagnosis: same Procedure: cysto, rpg, TURBTs Anesthesia: GETA Surgeon: MONTY HARMON Estimated blood loss: minimal Pathology: list (bladder tumor---left & right side/ dome) Specimen disposition: to lab Condition: stable - Hospital course Hospital course: macrobid & percocet 10mg /325 - Disposition Condition at discharge: Stable Disposition: 01 HOME / SELF CARE / HOMELESS Short Stay Discharge Plan Follow up with: PRIMARY CAREMD [Primary Care Provider] - 7 Days
--- NOTE | 2022-03-21 11:59 | Operative Report ---
DATE OF SURGERY: 03/21/2022 PREOPERATIVE DIAGNOSIS: Recurrent bladder tumor. POSTOPERATIVE DIAGNOSIS: Recurrent bladder tumor (left, right and dome). PROCEDURES: Cystoscopy, bilateral retrograde pyelograms, transurethral resection of multiple bladder tumors. SURGEON: Stefan Nelson MD ANESTHESIA: General. ESTIMATED BLOOD LOSS: Minimal. FLUIDS: Crystalloid. COMPLICATIONS: No complications. INDICATIONS: This 71-year-old gentleman well known to our service with a history of recurrent superficial bladder tumors as well as prostate cancer, status post robotic prostatectomy. The patient was undergoing surveillance cystoscopy and was found to have multiple small bladder tumors. Presents now for endoscopic evaluation. DESCRIPTION OF PROCEDURE: The patient was taken to the operative suite, placed in the supine position. After adequate general anesthesia, placed in a dorsal lithotomy position, prepped and draped in a sterile fashion. Pancystourethroscopy was performed with a 22-[place] cystoscope. No urethral abnormalities. In bladder, he had multiple small tumors in the left, right side as well as the dome, approximately 5 mm in diameter with an aggregate of about 2 cm. Bilateral retrograde pyelograms were obtained with an 8-[place] catheter and 8 mL of contrast. No filling defects or obstruction. With a yellow loop on the cutting and coag at 120 and 60, transurethral resection of the bladder tumors was performed in a systematic fashion. There were 2 areas on the right side of the dome that was a little deep in order to get the tumor out and then fulgurize the base and therefore, I left a 20-[place] catheter indwelling. Rectal exam was benign. He was extubated and taken to recovery room in stable condition. He will go home on Percocet and Macrobid. TID: [id number] RECEIPT: [id number] GUICHO/TIFFANY
[2022-03-21 12:54] VITALS: BP 150/82
--- NOTE | 2022-03-21 13:38 | Fluoroscopy Report ---
INTRAOPERATIVE FLUOROSCOPY: RETROGRADE UROGRAPHY INDICATION: BILAT RPG W/ BLADDER TUMOR. TECHNIQUE: Intraoperative spot images were obtained during the procedure. FINDINGS: No hydronephrosis or ureteral filling defect. Please see procedure note for details. Fluoroscopy Time: 10 seconds. Fluoroscopy Images: 4. Signer Name: Beto Madrid MD Signed: 03/21/2022 1:34 PM Workstation Name: [email or web address]
--- NOTE | 2022-03-21 19:04 | Post Anesthesia Evaluation ---
- Post Anesthesia Evaluation Patient Participated: Yes Airway Patent: Yes Stable Respiratory Function: Yes Nausea/Vomiting: No Temp > 96.8F: Yes Pain Manageable: Yes Adequeate Hydration: Yes Anesthesia Complications: No Block Receding Appropriately: Not Applicable Patient on Ventilator: No
== END 2022-03-21 12:45 | disposition home or self-care (01) ==
LOC: OR 07:58
PROVIDERS: ATTEND Urology
DX: C67.1 Malignant neoplasm of dome of bladder (principal); C61 Malignant neoplasm of prostate; I10 Essential (primary) hypertension; G43.909 Migraine, unspecified, not intractable, without status migrainosus; E78.00 Pure hypercholesterolemia, unspecified; Z20.822 Contact with and (suspected) exposure to COVID-19; Z87.891 Personal history of nicotine dependence; Z79.899 Other long term (current) drug therapy; F32.9 Major depressive disorder, single episode, unspecified; F41.9 Anxiety disorder, unspecified; Z98.890 Other specified postprocedural states
CPT/HCPCS: 36415; 52235; 74420; 80053; 85027; 88307; J0690; J1170; J2250; J2704; J3490; J7120; Q9967; U0003